=== PATIENT | male | born 1990 | race Caucasian/White ===

== ENCOUNTER 2018-07-03 06:41 | Day surgery (SDC) | payer MEDICAID ==
[~2018-07-03] VITALS: Ht 175.3 cm; Wt 99.8 kg
[~2018-07-03 06:41] MED LIST: LACTATED RINGERS 1,000 ML IV SCH
[2018-07-03] MEDS ORDERED: BUPIVACAINE HCL/PF 0.5% (5MG/ML) 10ML ONE ×2 (07:33→10:41)
[2018-07-03] MEDS ORDERED: NORMAL SALINE 0.9% 10 ML SYR ONE (07:34)
[2018-07-03] MEDS ORDERED: BACITRACIN 50,000 UNITS/VIAL ONE (07:34)
[2018-07-03] MEDS ORDERED: LIDOCAINE HCL/PF 1% 10 MG/ML 5ML VIAL ONE ×3 (07:35→10:41)
[2018-07-03 08:41] LABS: *BARBITURATES SCREEN URINE NEGATIVE (NEGATIVE)
[2018-07-03 08:42] LABS: *AMPHETAMINES SCREEN URINE NEGATIVE (NEGATIVE); *BENZODIAZEPINES SCREEN URINE NEGATIVE (NEGATIVE); *COCAINE SCREEN URINE NEGATIVE (NEGATIVE); METHADONE URINE SCREEN NEGATIVE (NEGATIVE); OPIATES URINE SCREEN NEGATIVE (NEGATIVE)
[2018-07-03 08:43] LABS: CANNABINOID URINE SCREEN NEGATIVE (NEGATIVE); PHENCYCLIDINE URINE SCREEN NEGATIVE (NEGATIVE)
[2018-07-03] MEDS ORDERED: SODIUM CHLORIDE 0.9% 10ML VIAL ONE (10:16)
[2018-07-03] MEDS ORDERED: SKIN ADHESIVE 0.7 GM EA TOP ONE (10:16)
[2018-07-03] MEDS ORDERED: FENTANYL CITRATE/PF 50MCG/ML 2ML VIAL ONE (10:16)
[2018-07-03] MEDS ORDERED: CEFAZOLIN SODIUM 1000MG/VIAL ONE (10:16)
[2018-07-03] MEDS ORDERED: MIDAZOLAM HCL 2 MG/2 ML VIAL ONE (10:16)
[2018-07-03] MEDS ORDERED: PROPOFOL 200MG/20ML VIAL IV ONE (10:16)
[2018-07-03] MEDS ORDERED: ROCURONIUM BROMIDE 10MG/ML VIAL 5ML IV ONE (10:18)
[2018-07-03] MEDS ORDERED: ONDANSETRON HCL 4MG/2ML INJ ONE (10:42)
[2018-07-03] MEDS ORDERED: NEOSTIGMINE METHYLSULFATE 1MG/ML 10 ML VIAL ONE (10:59)
[2018-07-03] MEDS ORDERED: GLYCOPYRROLATE 0.2 MG/ML 2ML VIAL ONE (10:59)
[2018-07-03] MEDS ORDERED: METOCLOPRAMIDE HCL 10MG/2ML VIAL IV PRN (11:45)
[2018-07-03] MEDS ORDERED: HYDROMORPHONE HCL/PF 2MG/ML CPJ IV PRN (11:45)
== END 2018-07-03 13:00 | disposition home or self-care (01) ==
LOC: OR 06:41
PROVIDERS: ATTEND Specialist
DX: L05.01 Pilonidal cyst with abscess (principal); Z87.891 Personal history of nicotine dependence; F15.11 Other stimulant abuse, in remission
CPT/HCPCS: 11771; 80305; 88305; J0690; J2250; J2405; J2704; J2710; J3010; J3490